=== PATIENT | male | born 1980 | race Two or more races ===

== ENCOUNTER 2023-06-25 19:26 | Emergency (ER) | payer SELFPAY ==
[~2023-06-25] VITALS: Ht 162.6 cm; Wt 60.2 kg
[2023-06-25] MEDS ORDERED: BENZOCAINE (DENTAL) 20 % SPRAY 60ML MT ONE (20:30)
[2023-06-25] MEDS ORDERED: AUG875T PO (20:51)
[2023-06-25 21:04] VITALS: BP 138/96; PULSE 84; RESP 16; TEMP 98.4; O2SAT 98
== END 2023-06-25 21:08 | disposition home or self-care (01) ==
LOC: ER 19:26
DX: K04.7 Periapical abscess without sinus (principal); Z87.891 Personal history of nicotine dependence
CPT/HCPCS: 41800